=== PATIENT | female | born 1955 | race Caucasian/White ===

== ENCOUNTER 2016-08-31 01:05 | Observation (INO) | payer OTHER ==
[2016-08-31] MEDS ORDERED: ASPIRIN 81 MG CHEW TAB PO ONE (01:17)
[2016-08-31] MEDS ORDERED: amLODIPine BESYLATE 5 MG TABLET PO ONE (01:26)
[2016-08-31 01:32] LABS: BASOPHILS % 0.6 (0.0-1.5); EOSINOPHILS % 3.6 % (0.0-6.8); LYMPHOCYTES # 3.2 # k/uL (0.6-4.0); MEAN CORPUSCULAR HEMOGLOBIN 32.4 pg (28.0-34.0); MONOCYTES # 0.7 # k/uL (0.0-0.9); MONOCYTES % 6.8 % (0.0-11.0); NEUTROPHILS # 5.6 # k/uL (1.4-7.7)
[2016-08-31 01:46] LABS: eGFR (African) > 60; eGFR (Non-African) > 60
--- NOTE | 2016-08-31 02:12 | Diagnostic Imaging Report ---
[facility] [address] [facility].[address] [id number] Report Submission Date: Aug 31, 2016 2:10:18 AM LAP [employer] Patient Study Name: SOO BOB Date: Aug 31, 2016 1:34:11 AM LAP [employer] Modality Type: CR Gender: F Description: CHEST : 55 Institution: [facility] Physician: GLENN GARCIA Chest - one-view Clinical history: Chest pain for 2 hours. Findings: Examination of the chest in single portable AP view 08/31/2016 0134 hours with no prior films for comparison demonstrates lungs to be clear. Cardiac silhouette is prominent and the aorta is atherosclerotic. Monitor leads superimpose the chest. Impression: 1. Aortic atherosclerosis and left ventricular prominence. 2. No active disease. Electronically signed on Aug 31, 2016 2:10:18 AM LAP POLISHER by: Tanmay ORTA
[2016-08-31] MEDS ORDERED: LORATADINE 10 MG TABLET PO PRN (02:47)
[2016-08-31] MEDS ORDERED: ENOXAPARIN SODIUM 30 MG/0.3 ML DISP.SYRIN SQ ONE ×2 (02:47→04:49)
[2016-08-31 03:22] VITALS: BMI 36.6
[2016-08-31] MEDS ORDERED: ASPIRIN EC 81 MG TABLET.DR ONE (04:50)
--- NOTE | 2016-08-31 08:46 | ED Physician Documentation ---
Chest Pain - HISTORIAN Historian: patient - HPI Stated Complaint: Chest Pain Chief Complaint: Chest Pain Additional Information: squeezing, knot in chest while watching tv Onset: hours (3-4) Timing: sudden onset, still present Duration: waxing, waning Last known Well Date: 08/30/16 Last Known Well Time: 21:00 Last known Well Code/Unknown Code: Unknown Context: rest Severity: mild Quality: pressure, tightness Front/Back of Body, Lg (Color): 1 - chest pressure Chest Pain Radiation: shoulders Chest Pain Signs/Symptoms: nausea. denies: vomiting, diaphoresis, dyspnea Worsened By: nothing Relieved By: nothing Further Comments: no - ROS CONST: none MS/LYMPH: none GI/: nausea EYES/ENT: none SKIN/ENDO: none NEURO/PSYCH: none - PAST HX MO risk factors: hypertension DVT/PE Risk Factors: none TAD/AAA risk factors: none Neuro deficit: none GI disease: GERD Lung disease: none Surgeries/Procedures: none Immunizations: referred to PCP Allergies/Adverse Reactions: Allergies Allergy/AdvReac Type Severity Reaction Status Date / Time Sulfa (Sulfonamide Allergy Verified 08/31/16 01:25 Antibiotics) Home Medications: Ambulatory Orders Medication Instructions Recorded Cetirizine HCl [Zyrtec] 10 mg PO DAILY 08/31/16 Fluticasone Propionate [Flonase 1 spray IH AM 08/31/16 Nasal [place]] Ranitidine HCl [Zantac] 150 mg PO DAILY 08/31/16 - SOCIAL HX Smoking History: non-smoker Alcohol Use: none Drug Use: none - FAMILY HX Family HX: CAD over 55 - VITAL SIGNS Vital Signs: Vital Signs Temp Pulse Resp BP Pulse Ox 98.3 F 67 20 144/99 98 08/31/16 06:00 08/31/16 06:00 08/31/16 06:00 08/31/16 06:00 08/31/16 06:00 - REVIEWED ASSESSMENTS Nursing Assessment Reviewed: Yes Vitals Reviewed: Yes Progress - Results/Orders Results/Orders: cardiac w/u ordered - Progress Progress: pt. given 1 ntg sl in ambulance and norvasc 5 mg p.o. in er, both with improvement in chest pain Critical Care Note - Critical Care Note Total Time (mins): 0 ED Results Lab/Radiology - Lab Results Lab Results: Lab Results 08/31/16 08/31/16 08/31/16 01:20 01:20 01:20 WBC 10.00 K/ul K/ul (4.00-12.00) RBC 4.45 M/ul M/ul (3.90-5.20) Hgb 14.4 g/dL g/dL (12.0-16.0) Hct 42.3 % % (34.5-46.5) MCV 94.9 fl fl (80.0-100.0) MCH 32.4 pg pg (28.0-34.0) MCHC 34.2 g/dL g/dL (30.0-36.0) RDW 12.4 % % (11.3-14.3) Plt Count 348 K/mm3 K/mm3 (130-400) Neut % (Auto) 55.2 % % (39.0-79.0) Lymph % (Auto) 31.6 % % (16.0-50.0) Walton % (Auto) 6.8 % % (0.0-11.0) Eos % (Auto) 3.6 % % (0.0-6.8) Baso % (Auto) 0.6 (0.0-1.5) Neut # 5.6 # k/uL # k/uL (1.4-7.7) Lymph # 3.2 # k/uL # k/uL (0.6-4.0) Walton # 0.7 # k/uL # k/uL (0.0-0.9) Eos # 0.4 # k/uL # k/uL (0.0-0.6) Baso # 0.1 # k/uL # k/uL (0.0-0.5) Reactive Lymphs % 2.2 % % (0.0-5.0) Reactive Lymphs # 0.2 # k/uL # k/uL (0.0-0.8) Sodium 140 mmol/L mmol/L (136-145) Potassium 3.9 mmol/L mmol/L (3.5-5.0) Chloride 100 mmol/L mmol/L (98-110) Carbon Dioxide 28 mmol/L mmol/L (20-32) BUN 18 mg/dL mg/dL (10-26) Creatinine 0.8 mg/dL mg/dL (0.4-1.5) Estimated Creat Clear 118 Est GFR ( Amer) > 60 (60 - ) Est GFR (Non-Af Amer) > 60 (60 - ) Glucose 124 mg/dL H mg/dL (70-99) Calcium 9.8 mg/dL mg/dL (8.5-10.5) Total Bilirubin 0.4 mg/dL mg/dL (0.2-1.2) AST 23 U/L U/L (0-41) ALT 21 U/L U/L (0-45) Alkaline Phosphatase 84 U/L U/L (46-116) Troponin I 0.08 ng/mL H ng/mL (0.00-0.06) Total Protein 7.3 g/dL g/dL (6.0-8.5) Albumin 4.5 g/dL g/dL (3.0-5.5) - Radiology Radiology Impressions: cxr clear - Orders Orders: ED Orders Category Date Time Status Activity as ordered D Care 08/31/16 02:47 Active Continuous EKG monitoring Q30M Care 08/31/16 01:17 Completed Continuous Pulse Oximetry Q30M Care 08/31/16 01:17 Completed Document Bowel Movement Q8 Care 08/31/16 02:47 Active ED Provider NOW Care 08/31/16 02:47 Ordered Observation-Telemetry NOW Care 08/31/16 02:[address] Saline Lock/IV NOW Care 08/31/16 01:17 Completed Vital Signs Q4 Care 08/31/16 02:47 Active 2 Gram Sodium Diet 08/31/16 Breakfast Ordered Regular Diet 08/31/16 Breakfast Ordered CHEST 1 VIEW [RAD] Stat Exams 08/31/16 01:17 Completed CBC/PLATELET/DIFF Routine Lab 08/31/16 01:20 Completed CMP Routine Lab 08/31/16 01:20 Completed TROPONIN I (cTnI) Routine Lab 08/31/16 08:40 Received TROPONIN I (cTnI) Stat Lab 08/31/16 01:20 Completed Aspirin Med 08/31/16 01:17 Discontinued 324 mg PO NOW ONE Enoxaparin Sodium [Lovenox] Med 08/31/16 02:47 Once 30 mg SQ NOW ONE Pantoprazole Sodium [Protonix] 40 mg Med 08/31/16 09:00 Ordered 0.9 % Sodium Chloride [Sodium Chloride] 50 ml IV DAILY amLODIPine BESYLATE [Norvasc] Med 08/31/16 09:00 Ordered 5 mg PO DAILY amLODIPine BESYLATE [Norvasc] Med 08/31/16 01:26 Discontinued 5 mg PO NOW ONE Resuscitation Status Routine Oth 08/31/16 02:47 Ordered EKG WITH COMPARISON Routine Ther 08/31/16 09:00 Ordered EKG WITH COMPARISON Routine Ther 08/31/16 17:00 Ordered EKG WITH COMPARISON Stat Ther 08/31/16 01:17 Stop Req Transfer Routine Transfer 08/31/16 Completed Chest Pain Physical Exam - EXAM General Appearance: no acute distress, alert EENT: eye inspection normal, ENT inspection normal, pharynx normal, no signs of dehydration, MARIANNE, no nystagmus, TM's nml Neck: nml inspection, no carotid bruit Respiratory: no resp. distress, chest non-tender, nml breath sounds CVS: reg. rate & rhythm, no murmur, no gallop, no friction rub, pulses full, pulses equal Abdomen: soft, no organomegaly, normal bowel sounds, no abdominal bruit, no distension, non-tender Skin: warm/dry, normal color Extremities: non-tender, normal range of motion, no evidence of injury, no edema Neuro: oriented X3, CN's nml as tested, motor nml, sensation nml, mood/affect nml, cognition normal Discharge Clincal Impression: Chest pain Qualifiers: Chest pain type: unspecified Qualified Code(s): R07.9 - Chest pain, unspecified Home Medications: Ambulatory Orders Cetirizine HCl [Zyrtec] 10 mg PO DAILY 08/31/16 Fluticasone Propionate [Flonase Nasal [place]] 1 spray IH AM 08/31/16 Ranitidine HCl [Zantac] 150 mg PO DAILY 08/31/16 Comments: troponin 0.08, ekg no evidence of ischemia, admitted for obs and repeat enzymes Condition: Stable Disposition: 01 HOME, SELF-CARE Decision to Admit: NO Decision Time: 02:45
[2016-08-31] MEDS ORDERED: PANTOPRAZOLE SODIUM 40 MG in 0.9 % SODIUM CHLORIDE 50 ML IV SCH (09:00)
[2016-08-31] MEDS ORDERED: ASPIRIN 81 MG CHEW TAB PO SCH (09:00)
[2016-08-31] MEDS ORDERED: amLODIPine BESYLATE 5 MG TABLET PO SCH (09:00)
[2016-08-31] MEDS ORDERED: FLUTICASONE PROPIONATE 120 SPRAY/16 GR BOTTLE NS SCH (09:00)
[2016-08-31 09:24] VITALS: BP 149/85
[2016-08-31] MEDS ORDERED: HEPARIN SODIUM,PORCINE/D5W 500 ML IV ONE ×2 (09:44→10:22)
[2016-08-31] MEDS ORDERED: HEPARIN SODIUM 5000 UNIT/1 ML IV ONE (09:44)
[2016-08-31] MEDS ORDERED: NITROGLYCERIN/D5W 250 ML IV ONE (09:44)
[2016-08-31] MEDS ORDERED: HEPARIN SODIUM 5000 UNIT/1 ML ONE (09:53)
[2016-08-31] MEDS ORDERED: SALINE FLUSH 10 ML DISP.SYRIN IVF ONE (09:54)
[2016-08-31] MEDS ORDERED: NITROGLYCERIN/D5W 50 MG/250 ML ML IV ONE ×2 (09:59→10:02)
[2016-08-31] MEDS ORDERED: HEPARIN SODIUM,PORCINE/D5W 20,000 UNIT/500 ML BAG IV ONE (10:02)
--- NOTE | 2016-08-31 11:38 | Discharge Summary ---
Discharge Summary - Discharge Sumary History of Present Illness: Pt. began having chest pain off and on within the last 12 hours. Never had before. Describes pain as mild, pressure like. Partly relieved by sl ntg. Initial EKG shows no ST changes, trop 0.08. Admitted for seial EKG/Trop. 8 hour trop 0.33. EKG unchanged, t wave inversion V1, V2, V3. This am, pt's pain 8/10. Condition at Discharge: Stable Home Medications: Ambulatory Orders Medication Instructions Recorded Cetirizine HCl [Zyrtec] 10 mg PO DAILY 08/31/16 Fluticasone Propionate [Flonase 1 spray IH AM 08/31/16 Nasal [place]] Ranitidine HCl [Zantac] 150 mg PO DAILY 08/31/16 Consultations this Visit: None, Other (Dr. De Guzman contacted at [facility] and transfer accepted.) Procedures this Visit: Other (Nitro drip at 10 mcg/min, heparin bolus 5000 units and drip at 1200 units/hr) Allergies/Adverse Reactions: Allergies Allergy/AdvReac Type Severity Reaction Status Date / Time Sulfa (Sulfonamide Allergy Verified 08/31/16 01:25 Antibiotics) Patient Problems: Current Active Problems Problem Status Onset Chest pain Acute Non-ST elevated myocardial infarction (non-STEMI) Acute Discharge Summary: Pt. stablized with above meds, chest pain controlled, transferred to [facility] by ground ambulance in stable condition. Hospital Course: Troponin increased from 0.08 to 0.33 mg/dl. Transxferred to [facility] for angiography.
== END 2016-08-31 10:35 | disposition short-term general hospital (02) ==
LOC: ED 01:05 → SOUTH 02:40
PROVIDERS: ADMIT Emergency Medicine; ATTEND Emergency Medicine
DX: I21.4 Non-ST elevation (NSTEMI) myocardial infarction (principal)
CPT/HCPCS: 36415; 71010; 80053; 84484; 85025; 93005; G0378; J1644; J3490; 96365; 96367; 99284; J1650